=== PATIENT | female | born 1945 | race Caucasian/White ===

== ENCOUNTER 2016-03-30 10:28 | Emergency (ER) | payer MEDICARE, OTHER ==
[~2016-03-30] VITALS: Ht 165.1 cm; Wt 47.7 kg
[~2016-03-30 10:28] MED LIST: ALBU18HF INH; CITA40TA13 PO; GABA600T2 PO; HYDR2TAB27 PO; OXYC-284 PO; QUET100T PO; TIOT18CA3 IH
[2016-03-30 10:44] VITALS: BP 146/88; PULSE 100; RESP 20; O2SAT 95
[2016-03-30 11:11] LABS: BASOPHILS % (AUTO) 0.7 % (0-3); EOSINOPHILS % (AUTO) 0.9 % (0-5); MONOCYTES % (AUTO) 9.5 % (4-12); Mean Corpuscular Hemoglobin 33.3 pg (27.0-35.0); Mean Corpuscular Volume 97.1 fL (81-100); NEUTROPHILS % (AUTO) 67.8 % (40-74); Platelet Count 336 bil/L (150-400)
[2016-03-30 11:43] LABS: Magnesium 2.2 mg/dL (1.6-2.6)
[2016-03-30] MEDS ORDERED: 0.9% Sodium Chloride 1,000 ML IV ONE (12:14)
[2016-03-30] MEDS ORDERED: Ondansetron 2 mg/mL 2 mL Inj IVPUSH ONE (12:15)
--- NOTE | 2016-03-30 12:21 | ED.REPORT ---
HPI-NVD Date of Service Mar 30, 2016 ED Provider: Los Cavanaugh PA-C Tena is a 71-year-old female with history of COPD who presents with chief complaint of vomiting and diarrhea. She reports a 3 day history of nonbloody vomiting and diarrhea associated with crampy abdominal pain, headache, chills and sweats. Admit sick contacts and 7 pound weight loss since symptoms began. Denies fever, travel, hematemesis, hematochezia, melena, urinary symptoms, upper respiratory symptoms, dizziness, chest pain, palpitations, wheeze, cough, shortness of breath. Nursing Notes Stated Complaint: VOMITING Chief Complaint: General Complaint Nursing Notes Reviewed: Yes Allergies: Coded Allergies: No Known Allergies (Verified Allergy, Unknown, 11/21/14) Scheduled Citalopram (Citalopram) 40 Mg Tablet 40 MG PO DAILY Gabapentin (Gabapentin) 600 Mg Tablet 300 MG PO AM Gabapentin (Gabapentin) 600 Mg Tablet 1,200 MG PO HS Ondansetron ODT (Ondansetron ODT) 8 Mg Tab.rapdis 8 MG PO TID Quetiapine Fumarate (Seroquel) 100 Mg Tablet 200 MG PO HS Tiotropium [place] (Spiriva) 18 Mcg Cap.w.dev 18 MCG IH DAILY Scheduled PRN Albuterol Sulfate (Ventolin HFA Inhaler) 200 Puff/18 Gm Inhaler 2 PUFF INH Q4 PRN PRN For Wheezing Hydromorphone (Dilaudid) 2 Mg Tablet 2-3 MG PO Q8 PRN PRN For Headache Oxycodone HCl/Acetaminophen 5-325 (Percocet 5-325) 1 Each Tablet 0.5-1 TAB PO Q6 PRN PRN For Pain General Time Seen by MD: 11:58 Chief Complaint Vomiting Past Medical History Past Medical History Notes: PCP Dr. Apodaca Past Medical History alcoholism left wrist viral meningitis 1996 cervical cancer stomach aneurism Osteoarthritis Migraine Depression Shingles Reports: COPD Past Surgical History Reports: Appendectomy, , Hysterectomy Reports: Back/neck surgery Family History Patient is adopted Smoking History Current Every Day Smoker Social History Alcohol Use: Denies alcohol use Drug Use: Denies drug use, THC Other Social History: Lives alone, Local resident Ambulatory Status Independent Review of Systems Negative unless stated otherwise in history of present illness Physical Exam General: Well appearing, thin, no acute distress. Head: Atraumatic, normocephalic. Eyes: No scleral icterus or injection. No discharge. Vision grossly intact. ENT: Voice clear, hearing grossly intact, mucous membranes moist. Respiratory: Regular rate and rhythm. Breath sounds present, clear to auscultation and equal bilaterally. Cardiovascular: Regular rate and rhythm, without murmur, gallop or rub. No pedal edema. Gastrointestinal: Abdomen flat and non-tender without guarding or rebound. Bowel sounds normoactive. Skin: Warm and dry. Neurological: Grossly nonfocal. Psychological: Alert and oriented. Speech appropriate, linear and logical. Behavior appropriate. Initial Vital Signs Vital Signs (First) Date Time Temp Pulse Resp B/P Pulse Ox O2 Delivery O2 Flow Rate FiO2 03/30/16 10:44 36.1 100 20 146/88 95 Room Air Initial VS: Reviewed, Vital signs normal (borderline tachycardia) Interpretation & Diagnostics Interpretation & Diagnostics: Negative for flu a & B Lab Results Interpretation Result Diagram: 03/30/16 1100 03/30/16 1100 Test 03/30/16 11:00 03/30/16 13:05 03/30/16 13:10 White Blood Count 9.1th/mm3 (3.8-10.1) Red Blood Count 4.53mil/mm3 (3.90-5.20) Hemoglobin 15.1g/dL (12.0-15.6) Hematocrit 44.0% (35.0-46.0) Mean Corpuscular Volume 97.1fL (81-100) Mean Corpuscular Hemoglobin 33.3pg (27.0-35.0) Mean Corpuscular Hemoglobin Concent 34.3% (32.0-37.0) Red Cell Distribution Width 12.8% (12.3-15.4) Platelet Count 336bil/L (150-400) Neutrophils (%) (Auto) 67.8% (40-74) Lymphocytes (%) (Auto) 20.9% (14-46) Monocytes (%) (Auto) 9.5% (4-12) Eosinophils (%) (Auto) 0.9% (0-5) Basophils (%) (Auto) 0.7% (0-3) Sodium Level 141mEq/L (134-144) Potassium Level 4.4mEq/L (3.5-5.2) Chloride Level 100mEq/L (97-108) Carbon Dioxide Level 25mmol/L (18-29) Blood Urea Nitrogen 14mg/dL (8-27) Creatinine 0.68mg/dL (0.57-1.00) Estimat Glomerular Filtration Rate 121mL/min (>59) Glucose Level 115mg/dL (60-99) Calcium Level 9.9mg/dL (8.5-10.1) Magnesium Level 2.2mg/dL (1.6-2.6) Total Bilirubin 0.5mg/dL (0.0-1.2) Aspartate Amino Transf (AST/SGOT) 17U/L (0-50) Alanine Aminotransferase (ALT/SGPT) 9U/L (0-32) Alkaline Phosphatase 107U/L (25-165) Total Protein 7.7g/dL (6.4-8.4) Albumin 4.9g/dL (3.4-5.0) Hold Goodson Top Tube Received (Received) Hold Purple Top Tube Received (Received) Hold Blue Top Tube Received (Received) Hold Red Top Tube Received (Received) Hold Coin Top Tube Received (Received) Hold Urine Received (Received) Re-Eval/Medical Decision Med Decision/Clinical Course Patient's a cheerful 71-year-old female who presents with a chief complaint of 3 days of vomiting and diarrhea. She states she has been unable to keep anything down over that time. History of COPD. History and physical is generally reassuring, labs are within acceptable limits. I believe this is viral gastroenteritis versus bacterial gastroenteritis, influenza, toxidrome. Patient responded well to a liter of normal saline and Zofran in the department. She is able to eat some crackers and drink some water successfully , felt much better and wished to be discharged to home. Prescribe Zofran, counseled BRAT diet, primary care follow-up, gave return precautions Discharge & Departure Impression: Primary Impression: Viral gastroenteritis Disposition: Home Discharge Condition All VS Reviewed: Yes Condition: Stable Patient Instructions: Gastroenteritis (ED) Additional Instructions: Evaluation for nausea and vomiting in the emergency department. History, physical and blood work are all quite reassuring. I believe this is a viral gastroenteritis. You responded well to a liter of fluid and antinausea medications and emergency Department. At this point I believe you are stable and safe to be discharged to home. I will send you with a prescription for the antinausea medication. As discussed are not typically recommend antidiarrheal agents. I do recommend the BRAT diet: Bananas, rice, applesauce and toast, though you are free to eat any mild food that you tolerate. Most importantly, rest and drink small amounts of fluid throughout the day. I recommend half strength apple juice or Gatorade, though rehydration fluids such as Pedialyte are also an effective choice. Follow-up with your primary care provider if symptoms are not resolving in a few days. Return to emergency department for any new or worsening symptoms including uncontrollable vomiting or diarrhea, weakness, high fever. Referrals: Negin Apodaca MD (PCP) EDSupervising Provider for APC: Jarrett Arora DO copies to: Negin Apodaca MD, Seth PA-C Mar 30, 2016 12:21
[2016-03-30] MEDS ORDERED: ONDA8TAB10 PO (14:59)
[2016-07-30] MEDS ORDERED: BENZ200C44 PO (08:56)
[2016-07-30] MEDS ORDERED: ARFO15VI2 IH (08:59)
[2016-07-30] MEDS ORDERED: ALBU18HF INH (08:59)
[2016-07-30] MEDS ORDERED: BUDE1AMP2 IH (08:59)
== END 2016-03-30 15:11 | disposition home or self-care (01) ==
LOC: SED 10:28
DX: A08.4 Viral intestinal infection, unspecified (principal); R11.10 Vomiting, unspecified; R19.7 Diarrhea, unspecified; J44.9 Chronic obstructive pulmonary disease, unspecified; F17.200 Nicotine dependence, unspecified, uncomplicated
CPT/HCPCS: 36415; 80053; 83735; 85025; 87804; 96361; 96374; 96375; 99284; J2405; J7030

== ENCOUNTER 2016-04-23 17:24 | Emergency (ER) | payer MEDICARE, OTHER ==
[~2016-04-23] VITALS: Ht 165.1 cm; Wt 49.0 kg
[~2016-04-23 17:24] MED LIST changes: +ONDA8TAB10 PO
[2016-04-23 17:33] VITALS: BP 124/83; PULSE 108; RESP 20; O2SAT 93
--- NOTE | 2016-04-23 18:13 | DRSVH ---
PROCEDURE: X-RAY CHEST ONE VIEW, PORTABLE ([id number]) INDICATIONS: SHORTNESS OF BREATH TECHNIQUE: One view of the chest was acquired. COMPARISON: Located Within [facility], CR, XR CHEST 1VW (PORTABLE), 06/19/2015, 16:17. FINDINGS: Surgical changes and devices: None. Lungs and pleura: No pleural effusions or pneumothorax. There is hyperinflation of the lungs with f lattening of the hemidiaphragms compatible with COPD. Lungs are clear without acute consolidation. Mediastinum: Mediastinal contours appear unchanged. Heart size is normal. Bones and chest wall: No suspicious bony lesions. Overlying soft tissues appear unremarkable. IMPRESSION: 1. Findings compatible with COPD redemonstrated without acute consolidation. Dictated by: Ismael Naranjo M.D. on 04/23/2016 at 18:10 Approved by: Ismael Naranjo M.D. on 04/23/2016 at 18:11
[2016-04-23 18:52] LABS: BASOPHILS % (AUTO) 0.2 % (0-3); MONOCYTES % (AUTO) 10.5 % (4-12); Mean Corpuscular Hemoglobin 33.1 pg (27.0-35.0); Mean Corpuscular Volume 98.2 fL (81-100); NEUTROPHILS % (AUTO) 59.4 % (40-74); Platelet Count 314 bil/L (150-400)
[2016-04-23 19:06] VITALS: BP 146/80; PULSE 100; RESP 20; O2SAT 96
[2016-04-23 19:08] LABS: TROPONIN T < 0.010 ug/L (0.0-0.011)
--- NOTE | 2016-04-23 19:55 | ED.REPORT ---
HPI-Dyspnea / Wheezing Date of Service Apr 23, 2016 ED Provider: Noemi Arauz MD This is a 71 year old female with a history of COPD and abdominal aneurysm presenting to the emergency department complaining of shortness of breath that began one week ago. Pt completed a 5-day course of doxycycline and prednisone two days ago. However, symptoms continue to persist. Associated symptoms include non-productive cough, dyspnea and dizziness on exertion, rhinorrhea, and nasal congestion. Denies chest pain, fever, chills, nausea, vomiting, abdominal pain, dysuria, hematuria, or diarrhea. Nursing Notes Stated Complaint: SOB Chief Complaint: Respiratory Complaints Nursing Notes Reviewed: Yes Allergies: Coded Allergies: No Known Allergies (Verified Allergy, Unknown, 04/23/16) Scheduled Citalopram (Citalopram) 40 Mg Tablet 40 MG PO DAILY Gabapentin (Gabapentin) 600 Mg Tablet 300 MG PO AM Gabapentin (Gabapentin) 600 Mg Tablet 1,200 MG PO HS Ondansetron ODT (Ondansetron ODT) 8 Mg Tab.rapdis 8 MG PO TID Quetiapine Fumarate (Seroquel) 100 Mg Tablet 200 MG PO HS Tiotropium [place] (Spiriva) 18 Mcg Cap.w.dev 18 MCG IH DAILY Scheduled PRN Albuterol Sulfate (Ventolin HFA Inhaler) 200 Puff/18 Gm Inhaler 2 PUFF INH Q4 PRN PRN For Wheezing Hydromorphone (Dilaudid) 2 Mg Tablet 2-3 MG PO Q8 PRN PRN For Headache Oxycodone HCl/Acetaminophen 5-325 (Percocet 5-325) 1 Each Tablet 0.5-1 TAB PO Q6 PRN PRN For Pain General Time Seen by MD: 19:52 Chief Complaint Other Hx Obtained From: Patient Arrived By: Walk-in Sudden in Onset?: Yes Onset Occurred: 1 week ago Symptom Duration: Since onset Severity: Current: Mild Pertinent Negative: Pt denies other symptoms Recent Healthcare: No recent doctor visit, No recent hospitalization Similar Sx Previous: No Past Medical History Past Medical History Notes: PCP Dr. Apodaca Past Medical History alcoholism left wrist viral meningitis 1996 cervical cancer stomach aneurism Osteoarthritis Migraine Depression Shingles Reports: COPD Past Surgical History Reports: Appendectomy, , Hysterectomy Reports: Back/neck surgery Family History Patient is adopted Smoking History Current Every Day Smoker Social History Alcohol Use: Denies alcohol use Drug Use: Denies drug use, THC Other Social History: Lives alone, Local resident Ambulatory Status Independent Review of Systems Constitutional: Denies: Chills, Fever Respiratory: Reports: Dyspnea on exertion, Non-productive cough, Shortness of breath Complete sys rev & neg: except as marked. GI: Denies: Abdominal pain, Constipation, Diarrhea, Nausea, Vomiting Female: Denies: Dysuria Neurologic: Reports: Dizziness, Denies: Headache Physical Exam Initial Vital Signs Vital Signs (First) Date Time Temp Pulse Resp B/P Pulse Ox O2 Delivery O2 Flow Rate FiO2 04/23/16 17:33 36.0 108 20 124/83 93 Room Air Initial VS: Reviewed Head / Eyes: Atraumatic, Normocephalic, PERRL Abdomen / GI: Soft, Non-tender, No guarding, No rebound, No distention Extremities: Vascular intact, Neuro intact, No swelling, No tenderness Skin: Warm, Dry, No cyanosis Neurologic: Alert, Oriented, Nonfocal Psychiatric: Mood/affect normal, Behavior normal, Normal thought content General/Constitutional: Awake, Alert Neck: Atraumatic, Supple, No meningismus, Full range of motion, No swelling, Non-tender, No masses Wheezing / Retractions: Positive: Prolonged exp phase, Wheezing expiratory Rales / Rhonchi: Positive: Rhonchi diffuse Coarse breath sounds diffusely Cardiovascular: Heart rate NL, Regular rhythm, Heart sounds NL, Peripheral circulation NL ENT: Tympanic membs NL Mouth: Positive: Mucous membranes dry Interpretation & Diagnostics CHEST X-RAY IMPRESSION: 1. Findings compatible with COPD redemonstrated without acute consolidation. Dictated by: Ismael Naranoj M.D. on 04/23/2016 at 18:10 Approved by: Ismael Naranjo M.D. on 04/23/2016 at 18:11 Lab Results Interpretation Result Diagram: 04/23/16 1830 04/23/16 1830 Test 04/23/16 18:30 04/23/16 21:40 White Blood Count 12.8th/mm3 (3.8-10.1) Red Blood Count 4.38mil/mm3 (3.90-5.20) Hemoglobin 14.5g/dL (12.0-15.6) Hematocrit 43.0% (35.0-46.0) Mean Corpuscular Volume 98.2fL (81-100) Mean Corpuscular Hemoglobin 33.1pg (27.0-35.0) Mean Corpuscular Hemoglobin Concent 33.7% (32.0-37.0) Red Cell Distribution Width 12.9% (12.3-15.4) Platelet Count 314bil/L (150-400) Neutrophils (%) (Auto) 59.4% (40-74) Lymphocytes (%) (Auto) 26.4% (14-46) Monocytes (%) (Auto) 10.5% (4-12) Eosinophils (%) (Auto) 3.0% (0-5) Basophils (%) (Auto) 0.2% (0-3) Sodium Level 137mEq/L (134-144) Potassium Level 4.5mEq/L (3.5-5.2) Chloride Level 94mEq/L (97-108) Carbon Dioxide Level 28mmol/L (18-29) Blood Urea Nitrogen 21mg/dL (8-27) Creatinine 0.74mg/dL (0.57-1.00) Estimat Glomerular Filtration Rate 110mL/min (>59) Glucose Level 107mg/dL (60-99) Calcium Level 9.5mg/dL (8.5-10.1) Total Bilirubin 0.2mg/dL (0.0-1.2) Aspartate Amino Transf (AST/SGOT) 27U/L (0-50) Alanine Aminotransferase (ALT/SGPT) 31U/L (0-32) Alkaline Phosphatase 97U/L (25-165) Troponin T < 0.010ug/L (0.0-0.011) Pro-B-Type Natriuretic Peptide 57.27pg/mL (0-301) Total Protein 7.0g/dL (6.4-8.4) Albumin 4.2g/dL (3.4-5.0) Hold Goodson Top Tube Received (Received) ECG Interpretation ECG Interpretation: SR at rate of 95 Abnormal T No STEMI Time: 20:06 Interpreted by: ED physician Re-Eval/Medical Decision Med Decision/Clinical Course 71-year-old female with past medical history of COPD and AAA here with worsening shortness of breath. Patient was treated approximately one week ago with doxycycline and steroids for COPD exacerbation. Differential diagnosis includes but is not limited to viral upper respiratory infection versus bacterial upper respiratory infection versus pneumonia versus COPD exacerbation. X-ray is unremarkable. She drastically improved after 1 DuoNeb. She was walked in the emergency department and experienced no desaturation and her oxygen saturation. Orthostatics were also performed, and she did not have any orthostasis. She is amenable to discharge at this time with follow-up with her primary care physician. She has been given strict return precautions, and I have advised her to use her home nebulizer every 3 hours for the next 48 hours, and then to start spacing it out as tolerated. She is amenable to discharge. Her labs are unremarkable aside from mild leukocytosis, likely secondary to steroid burst. Re-Evaluation/Progress : Time of Eval: 21:33 Re-Evaluation/Progress Note: Condition imoroved. plan for d/c, all questions addressed. Counseled Regarding: Diagnosis, Lab results, Need for follow-up Discharge & Departure Impression: Primary Impression: COPD exacerbation Disposition: Home Discharge Condition All VS Reviewed: Yes Condition: Stable Patient Instructions: Chronic Obstructive Pulmonary Disease (ED) Additional Instructions: Thank you for seeking care at the emergency department today. Use your nebulizer every 3 hours for the next 48 hours. Follow-up with your primary care provider. Return to the emergency department for any new or worsening symptoms Referrals: Negin Apodaca MD (PCP) Scribe Attestation Portions of this note were transcribed by Tatum Bean. I, Dr. Arauz personally performed the history, physical exam and medical decision-making; I reviewed and confirmed the accuracy of the information in the transcribed note. Signed by: nicholas Connor. 04/23/2016, 23:00. Noemi Arauz MD Apr 23, 2016 19:55 TATUM BEAN Apr 23, 2016 20:05
[2016-04-23] MEDS ORDERED: Albuterol-Ipratropium 3 mL Inhalation Solution NEB ONE (20:05)
[2016-04-23 20:26] VITALS: BP_SYST 137; BP_SYST 140; BP_DIAS 67; BP_DIAS 75; PULSE 104
[2016-04-23 20:41] VITALS: PULSE 97; RESP 20; O2SAT 94
[2016-04-23 21:55] VITALS: BP 132/74; PULSE 91; RESP 21; O2SAT 94
[2016-04-23 22:15] LABS: APPEARANCE,URINE CLEAR (CLEAR,HAZY); COLOR,URINE YELLOW (YELLOW); OCCULT BLOOD,URINE NEGATIVE (NEGATIVE); UROBILINOGEN,URINE NORMAL (NORMAL)
[2016-07-30] MEDS ORDERED: BENZ200C44 PO (08:56)
[2016-07-30] MEDS ORDERED: ARFO15VI2 IH (08:59)
[2016-07-30] MEDS ORDERED: ALBU18HF INH (08:59)
[2016-07-30] MEDS ORDERED: BUDE1AMP2 IH (08:59)
== END 2016-04-23 21:55 | disposition home or self-care (01) ==
LOC: SED 17:24
DX: J44.1 Chronic obstructive pulmonary disease with (acute) exacerbation (principal); R42 Dizziness and giddiness; F17.200 Nicotine dependence, unspecified, uncomplicated; Z85.41 Personal history of malignant neoplasm of cervix uteri
CPT/HCPCS: 36415; 71010; 80053; 81000; 83880; 84484; 85025; 93005; 94664; 99285; J7620

== ENCOUNTER 2016-07-31 05:48 | Day surgery (SDC) | payer MEDICARE, OTHER ==
[~2016-07-31] VITALS: Ht 165.1 cm; Wt 47.7 kg
[~2016-07-31 05:48] MED LIST changes: +ARFO15VI2 IH; +BENZ200C44 PO; +BUDE1AMP2 IH
[2016-07-31] MEDS: Lactated Ringer's 1,000 ML IV SCH ×2 (06:11→07:26)
[2016-07-31 06:12] VITALS: BP 126/76; PULSE 94; RESP 20; O2SAT 93
[2016-07-31] MEDS ORDERED: HYDROcodone-APAP 7.5-325 mg Tablet PO PRN (06:50)
[2016-07-31] MEDS ORDERED: BUPR100T8 PO (06:54)
[2016-07-31] MEDS ORDERED: Dexamethasone 4 mg/mL Inj IVPUSH PRN (06:55)
[2016-07-31] MEDS ORDERED: Labetalol 5 mg/mL 4 mL Inj IV PRN (06:55)
[2016-07-31] MEDS ORDERED: fentaNYL-PF 50 mCg/mL 2 mL Inj IVPUSH PRN (06:55)
[2016-07-31] MEDS ORDERED: Phenylephrine 10,000 mCg/mL Inj IVPUSH PRN (06:55)
[2016-07-31] MEDS ORDERED: MetoCLOpramide 5 mg/mL 2 mL Inj IVPUSH PRN (06:55)
[2016-07-31] MEDS ORDERED: HYDROmorphone 1 mg/mL Inj IVPUSH PRN (06:55)
[2016-07-31] MEDS ORDERED: Lactated Ringer's 500 ML IV PRN (06:55)
[2016-07-31] MEDS ORDERED: EPHEDrine Sulfate 50 mg/mL Inj IVPUSH PRN (06:55)
[2016-07-31] MEDS ORDERED: Ondansetron 2 mg/mL 2 mL Inj IVPUSH PRN (06:55)
[2016-07-31] MEDS ORDERED: hydrALAZINE 20 mg/mL Inj IVPUSH PRN (06:55)
[2016-07-31] MEDS ORDERED: Lactated Ringer's 1,000 ML IV SCH (06:55)
[2016-07-31] MEDS ORDERED: Albuterol-Ipratropium 3 mL Inhalation Solution ONE (07:00)
--- NOTE | 2016-07-31 08:20 | PCM.HPANE ---
Patient Data Date of Service: July 31, 2016 Surgeon Admitting Provider: Attending Provider:Justin Ma DO Primary Care Physician:Negin Apodaca MD Other Provider:Evangelina Soto Anesthesia Reason for Visit Right 4TH Metacarpal Neck And Head Fracture Ht/WT & BMI Height (Feet): 5 Height (Inches): 5 Weight (Kilograms): 47.7 Body Mass Index 17.00 Allergies Coded Allergies: hydroxyzine (Verified Adverse Reaction, Mild, nausea, 07/30/16) Past Anesthesia History Anesthesia History: Denies:: Abnormal Airway, Anesthesia Reactions, Difficult Intubation, Fam Anesthesia Reaction, Fam Malignant Hypertherm, Malignant Hyperthermia Diabetes History Hx Diabetes?: No Medications Home Meds Incl Beta Cristina: No Reported Medications Bupropion ER 100 Mg Tablet.er100 Tab PO DAILY #30 07/31/16 Albuterol Sulfate (Ventolin HFA Inhaler)200 Puff/18 Gm Inhaler1 Puff INH Q4 PRN For Wheezing #1 INHALER Ref 0 07/30/16 Budesonide 1 Mg/2 Ml Ampul.neb1 Mg IH TID 07/30/16 Arformoterol Tartrate (Brovana)15 Mcg/2 Ml Vial.neb15 Mcg IH BID PRN For Shortness of Breath 07/30/16 Quetiapine Fumarate (Seroquel)100 Mg [id number] Mg PO HS #30 TABLET Ref 0 01/14/14 Gabapentin 600 Mg Tablet1,200 Mg PO HS 30 Days Ref 0 01/14/14 Gabapentin 600 Mg [id number] Mg PO AM 30 Days Ref 0 01/14/14 Citalopram 40 Mg [id number] Mg PO DAILY 30 Days Ref 0 01/14/14 Discontinued Reported Medications Benzonatate 200 Mg [id number] Mg PO TID 07/30/16 Tiotropium [place] (Spiriva)18 Mcg Cap.w.dev18 Mcg IH DAILY #1 PKG Ref 0 08/19/14 Albuterol Sulfate (Ventolin HFA Inhaler)200 Puff/18 Gm Inhaler2 Puff INH Q4 PRN For Wheezing #1 INHALER Ref 0 08/19/14 Oxycodone HCl/Acetaminophen 5-325 (Percocet 5-325)1 Each Tablet0.5-1 Tab PO Q6 PRN For Pain Ref 0 08/19/14 Hydromorphone (Dilaudid)2 Mg Tablet2-3 Mg PO Q8 PRN For Headache 01/14/14 History History of ENT Problems?: No HEENT History: Denies:: Abnormal Airway Cataracts Difficult Intubation Dysphagia Glaucoma Hearing Problem Sinus Problem TMJ Denture Type: Full- Upper Full- Lower Teeth Condition: No Teeth Hx of Heart Problems?: Yes Cardiovascular History: Positive for:: Abdominal Aortic Aneurism (3.7CM) Coronary Artery Disease (ELEVATED CHLORESTEROL) Denies:: Congestive Heart Failure Edema Heart Murmur Hypertension Other Cardiac History: PT HAS A 3.7CM ABDOMIN AORTIC ANEURYSM Hx of Respiratory Problem?: Yes Respiratory History: Positive for:: COPD Dyspnea Emphysema Pneumonia Denies:: Asthma Chest Surgery Hemoptysis Tuberculosis Hx Neurologic Problems?: Yes Neurological History: Positive for:: Headaches (Migraines) Other Neurological Pertinent: INSOMNIA Hx of GI Problems?: Yes Gastrointestinal History: Denies:: Cirrhosis Diverticulitis Gall Bladder Disease Gastroesphageal Reflux Gastrointestinal Bleeding Heartburn Hepatitis Hiatal Hernia Liver Disease Rectal Bleeding Other GI Pertinent History: GASTROENTERITIS, DYSPHAGIA Hx of Problems?: No Female Hx: Denies:: Currently Endometriosis Pelvic Inflammatory Problems with Breasts? Skin History: Denies:: History Skin Disorders? Pressure Ulcers Hx Musculoskeletal Problems?: Yes Musculoskeletal History: Positive for:: Musculoskeletal Trauma (L FINGER FX, L KNEE PAIN, R FINGER FX, ANKEL FX) Hx of Psycho/Social Problems?: Yes Psycho Social History: Positive for:: Anxiety Hx Depression Suicide Attempt Denies:: Bipolar Disorder Hx Surgeries?: No (ORTHO, HYSTERECTOMY) Other History: Positive for:: Cancer (UTERINE) Hospitalization History Blood Transfusions: Positive for:: Blood Transfusions Denies:: Blood Transfuse Reaction Hx Diabetes: No Hx Alcohol Use: No (QUIT IN 2012)Hx Substance Use: No Smoking Status: Light Tobacco Smoker Have You Smoked inLast 12 mo: Yes Stop/Bang Treated for Sleep Apnea?: No Do You Have a CPAP Machine?: No S-Snoring: Do You Snore Loudly: No T-Tired: feel tired, fatigued: No O-Obsered: Observed not breath: No P-Blood Pressure: treated: No B- Body Mass Index > 35 kg/m2: No A- Age over 50: Yes N- Neck Large Circumference: No G- Gender Male: No SONAM Risk Assessment: Low Risk, <3 Yes Risk Assessment Category Category 1A: Patient has history of documented sleep apnea, and HAS NOT received any narcotic, sedative or anesthesia administration during this stay. Category 1B: Patient has history of documented sleep apnea, and HAS received any narcotic , sedative or anesthesia administration during this stay Category 2: Patient has SUSPECTED Obstructive Sleep Apnea, and HAS received any narcotic , sedative or anesthesia administration during this stay. Category 3: Patient has SUSPECTED Obstructive Sleep Apnea and HAS NOT received narcotic, sedative or anesthesia administration during this stay. Category 4: Outpatient in Procedural Areas with known sleep apnea or who screen positive for High Risk via the STOP/BANG questionnaire. Exam Exam Vital Signs Vital Signs Date Time Temp Pulse Resp B/P Pulse Ox O2 Delivery O2 Flow Rate FiO2 07/31/16 06:12 36.5 94 20 126/76 93 Room Air General Appearance: Alert, Oriented X3, Cooperative, No Acute Distress HEENT/AIRWAY: MP 2, Other (full dentures) Lungs: Clear to Auscultation, Diminished Heart: Exam Unremarkable, Regular Rate/Rhythm, No Murmurs/Rubs/Gallops Meds/Labs/Diagnostics Admission Meds Current Medications Lactated Ringer's (Lr) 1,000 ml @ 120 mls/hr Q8H20M IV Last administered on 07:26; Start 07/31/16 at 05:00; Stop 07/31/16 at 13:19 Albuterol/ Ipratropium (DuoNEB Inh Soln) 3 ml STK-MED ONCE .ROUTE Last administered on 07/31/16 07:03; Start 07/31/16 at 07:00; Stop 07/31/16 at 07:03 ; Status DC Cefazolin Sodium (Ancef Inj) 1 gm STK-MED ONCE IVPUSH Last administered on 07/31 07:38; Start 07/31/16 at 07:38; Stop 07/31/16 at 08:01; Status DC Plan Impression Patient chart reviewed, patient interviewed and anesthestic plan with risks, benefits, and alternatives discussed, and informed consent obtained. NPO per Anesth. Guidelines: Yes ASA Physical Status: ASA3 Severe Disease Anesthetic Plan: Regional Block Bene/Risks/Altern/Consents: Yes HP Complete Prior to Induction: Yes Other Plan Abhay block because of Severe COPD. Donald Garza MD July 31, 2016 08:20
[2016-07-31 09:14] VITALS: BP 136/61; PULSE 92; RESP 18; O2SAT 99
[2016-07-31 09:15] VITALS: BP 129/62; PULSE 92; RESP 22; O2SAT 92
[2016-07-31] MEDS ORDERED: Lidocaine 1%-Epi 1:100,000 20 mL Inj INFILTRATE ONE (09:15)
[2016-07-31 09:21] VITALS: BP 113/58; PULSE 92; RESP 20; O2SAT 94
[2016-07-31 09:27] VITALS: BP 128/60; PULSE 88; RESP 20; O2SAT 95
--- NOTE | 2016-07-31 09:43 | PCM.ANEP1 ---
Post Anesthesia PACU Phase 1 Assessment Date of Service: July 31, 2016 Vital Signs Vital Signs Date Time Temp Pulse Resp B/P Pulse Ox O2 Delivery O2 Flow Rate FiO2 07/31/16 09:27 88 20 128/60 95 Nasal Cannula 2 07/31/16 09:21 92 20 113/58 94 Nasal Cannula 2 07/31/16 09:15 92 22 129/62 92 Room Air 07/31/16 09:14 37 92 18 136/61 99 Room Air 07/31/16 06:12 36.5 94 20 126/76 93 Room Air Anesthetic Administered: Regional Block Level of Alertness: Awake, talking Pain: No Nausea or Vomiting: No CV Function and Hydration: Yes Airway Device: Oxygen Delivery: Room Air Lungs: Clear to Auscultation, Diminished PACU Phase 2 Assessment Patient Instructions Provided: Yes Donald Garza MD July 31, 2016 09:43
--- NOTE | 2016-07-31 09:52 | OP ---
[address] [address] OPERATIVE REPORT PATIENT: NIC STEVE : 1945 MR#: [id number] ADMIT: 07/31/2016 JOB ID: [id number] CORRECTED REPORT: DATE OF SURGERY: 07/31/2016 PREOPERATIVE DIAGNOSIS(ES): Right fourth metacarpal neck fracture. POSTOPERATIVE DIAGNOSIS(ES): Right fourth metacarpal neck fracture. PROCEDURE: Open reduction internal fixation, right fourth metacarpal neck fracture. SURGEON: Justin Ma D.O. ANESTHESIA: [place] block. HISTORY: The patient is a 71-year-old female that fell sustaining a right 4th metacarpal neck fracture with extension just below the metacarpal head. She had minimal displacement and was treated in a cast. She returned a week from her injury with further displacement of the fracture. I discussed with the patient the risks, benefits, alternatives and indications to proceed with open reduction internal fixation of right fourth metacarpal neck fracture. She understood the risks include, but not limited to, neurovascular injury, tendon injury, infection, failure of fixation, stiffness, persistent pain, all of which may require further intervention. The patient had all her questions answered. Consent was signed and placed in the chart. PROCEDURE IN DETAIL: The patient was brought to the operative suite and placed supine on the table. Surgical time-out was performed. Everyone in the room was in agreement. After appropriate anesthesia was obtained, the right upper extremity was then prepped and draped in a sterile fashion. A longitudinal incision was made directly overlying the 4th metacarpal neck. Dissection was carried down to the extensor tendon. The juncture was released from EDC tendon between the middle and the ring finger and the extensor tendons overlying the 4th metacarpal were retracted ulnarly. The periosteum was then incised and the periosteum elevated. The fracture site was exposed along the radial aspect of the neck. Manual reduction was performed with longitudinal traction and application of pointed forceps. The reduction was verified under fluoroscopy. Next, a Synthes 2.0 mm condylar plate was applied along the radial aspect of the metacarpal as a buttress plate. This was a five hole plate. The nonlocking screw was first applied to an oblong hole within the shaft to pull the plate to the radial cortex of the metacarpal. This allowed for significant buttress. This was followed by application of a nonlocking screw within the distal screw, across the fracture site as a lag screw. Completion of fixation was performed utilizing combination of nonlocking screws proximally and nonlocking and a locking screw distally within the head. While drilling for the locking screw, the drill tip did break and a small portion of the tip was within the medullary canal of the head. Final radiographic projections on fluoroscopy utilized to verify anatomic reduction and appropriate placement of the hardware. Copious irrigation was then performed, followed by closure of the overlying fascia with 4-0 Vicryl and a running 4-0 nylon for the skin. The patient was then placed in a well-padded well-molded ulnar gutter splint. ESTIMATED BLOOD LOSS: Less than 1 cc. COMPLICATIONS: The drill tip broke within the metacarpal head. It was situated within the confines of the head and thus decision was made not to attempt to remove the tip of the drill as this would cause more substantial damage. IMPLANTS: Synthes 2.0 mm five hole condylar plate with a combination of nonlocking and locking screws. POSTOPERATIVE PLAN: The patient will follow up with occupational therapy this week to be transitioned into a ulnar gutter brace. She is to start working on range of motion of the hand immediately after she sees therapy. I will see her back in the office in two weeks. We will repeat x-rays at that time and re-evaluate her motion. Corrected by CASSIE 08/01/16 at 10:20am Account number.
[2016-07-31 09:59] VITALS: BP 125/69; PULSE 95; RESP 18; O2SAT 96
== END 2016-07-31 23:59 | disposition home or self-care (01) ==
LOC: SAS 05:48
PROVIDERS: ATTEND Orthopaedic Surgery
DX: S62.334A Displaced fracture of neck of fourth metacarpal bone, right hand, initial encounter for closed fracture (principal); I25.10 Atherosclerotic heart disease of native coronary artery without angina pectoris; E78.5 Hyperlipidemia, unspecified; I71.4 Abdominal aortic aneurysm, without rupture; J44.9 Chronic obstructive pulmonary disease, unspecified; F41.8 Other specified anxiety disorders; K21.9 Gastro-esophageal reflux disease without esophagitis; M85.80 Other specified disorders of bone density and structure, unspecified site; F17.210 Nicotine dependence, cigarettes, uncomplicated; Z90.710 Acquired absence of both cervix and uterus; Z85.42 Personal history of malignant neoplasm of other parts of uterus; W01.0XXA Fall on same level from slipping, tripping and stumbling without subsequent striking against object, initial encounter; Y93.9 Activity, unspecified; Y92.9 Unspecified place or not applicable; Y99.8 Other external cause status
CPT/HCPCS: 26615; C1713; J0690; J7120; J7620

== ENCOUNTER 2016-08-08 19:37 | Emergency (ER) | payer MEDICARE, OTHER ==
[~2016-08-08] VITALS: Ht 165.1 cm; Wt 44.5 kg
[~2016-08-08 19:37] MED LIST changes: -BENZ200C44 PO; +BUPR100T8 PO; -HYDR2TAB27 PO; -ONDA8TAB10 PO; -OXYC-284 PO; -TIOT18CA3 IH
[2016-08-08 19:40] VITALS: BP 130/78; PULSE 86; RESP 16; O2SAT 96
--- NOTE | 2016-08-08 20:58 | DRSVH ---
PROCEDURE: CT ANGIO CHEST PULMONARY EMBOLISM ([id number]) INDICATIONS: SOB TECHNIQUE: After the administration of intravenous contrast, 2 mm thick sections acquired from the pulmonary api valeri to the posterior costophrenic angles. 3-dimensional maximum intensity projection (MIP) coronal a nd sagittal reformats were then acquired through the thorax. For radiation dose reduction, the follo wing was used: automated exposure control, adjustment of mA and/or kV according to patient size. COMPARISON: [facility], CT, CHEST ANGIO-PE, 01/14/2014, 17:32. FINDINGS: Image quality: Good Pulmonary arteries: Pulmonary arteries are normal in size, and demonstrate no intraluminal filling d efects to suggest central pulmonary embolism. Lungs and pleura: Emphysematous changes moderate to prominent amount. There is scarring at the left a pex. There is a new density approximately 1.2 cm in size in the posterior . somewhat inferior aspect of the right upper lobe. Developing mass cannot be excluded and followup of this in 3 months is sugge sted without contrast. No pleural effusions or pneumothorax. Central and peripheral airways are serna nt. Mediastinum: Heart size is normal, without pericardial effusion. No mediastinal or hilar adenopathy . Thoracic aorta is atherosclerotic ectatic and its lower portion aneurysmal up to 4 cm. Esophagus i s normal in caliber, without hiatal hernia. Bones and chest wall: There is a compression of what is thought to be the T11 thoracic vertebrae arielle hdate is uncertain. There is loss of approximately 50% of anterior vertebral body height. Ribs and th oracic spine appear intact throughout. . No axillary or supraclavicular adenopathy. Abdomen: Visualized upper abdominal solid organs appear normal in the early arterial phase of enhanc ement. IMPRESSION: 1. No evidence for pulmonary embolus. 2. Since the previous CT PE study a density approximately 12 mm in size is developed in the posterior aspect of the right upper lobe. The appearance of the bilaterally suspicious for mass lesion with th e differential that of small inflammatory focus. Followup of this CT scan without contrast in 3 month s is suggested. 3. Compression fracture of what is thought to be the T11 vertebrae, age is indeterminate. 4. Ectatic thoracic aorta with aneurysmal change distally near the abdominal thoracic junction. Aorta measures up to 4 cm in diameter. Dictated by: Stuart Bundy M.D. on 08/08/2016 at 20:43 Approved by: Stuart Bundy M.D. on 08/08/2016 at 20:57
--- NOTE | 2016-08-08 21:07 | ED.REPORT ---
HPI-General Illness Date of Service August 08, 2016 ED Provider: Joan Lu MD Pt is a 71 y/o female w/ a hx of COPD, everyday smoking, presenting to the ED from Urgent Care c/o SOB onset about 3 days ago. The patient recently had a right wrist surgery and has been short of breath more than her normal COPD since then. She is not currently on steroids for her COPD and uses her nebulizer 2x per day. She began feeling ill 2 days ago with symptoms such as abdominal pain and diarrhea which have resolved. She has been losing weight recently unintentionally and is a smoker. Pt denies cough, fever, chest pain. Right arm surgery performed by Dr. Ma. Nursing Notes Stated Complaint: SOB,SENT FROM Chief Complaint: Respiratory Distress Nursing Notes Reviewed: Yes Allergies: Coded Allergies: hydroxyzine (Verified Adverse Reaction, Mild, nausea, 07/30/16) Scheduled Budesonide (Budesonide) 1 Mg/2 Ml Ampul.neb 1 MG IH TID Bupropion ER (Bupropion ER) 100 Mg Tablet.er 100 TAB PO DAILY Citalopram (Citalopram) 40 Mg Tablet 40 MG PO DAILY Gabapentin (Gabapentin) 600 Mg Tablet 300 MG PO AM Gabapentin (Gabapentin) 600 Mg Tablet 1,200 MG PO HS Prednisone (PredniSONE) 20 Mg Tablet 20 MG PO DAILY Quetiapine Fumarate (Seroquel) 100 Mg Tablet 200 MG PO HS Scheduled PRN Albuterol Sulfate (Ventolin HFA Inhaler) 200 Puff/18 Gm Inhaler 1 PUFF INH Q4 PRN PRN For Wheezing Arformoterol Tartrate (Brovana) 15 Mcg/2 Ml Vial.neb 15 MCG IH BID PRN PRN For Shortness of Breath General Time Seen by MD: 21:05 Chief Complaint Other (SOB) Hx Obtained From: Patient Arrived By: Walk-in Onset Occurred: 3 days ago Symptom Duration: Since onset Severity: Current: No pain currently Severity: Maximum: No pain Past Medical History Past Medical History Notes: PCP Dr. Apodaca Past Medical History COPD alcoholism left wrist viral meningitis 1996 cervical cancer stomach aneurism Osteoarthritis Migraine Depression Shingles Past Surgical History Reports: Appendectomy, , Hysterectomy Reports: Back/neck surgery Family History Patient is adopted Smoking History Current Every Day Smoker Social History Alcohol Use: Denies alcohol use Drug Use: Denies drug use, THC Other Social History: Lives alone, Local resident Ambulatory Status Independent Review of Systems Full Review of Systems Constitutional: Denies: Chills, Fever Respiratory: Reports: Dyspnea on exertion, Shortness of breath, Denies: Non-productive cough Cardiovascular: Denies: Chest pain, Dyspnea on exertion GI: Denies: Abdominal pain, Diarrhea, Nausea, Vomiting Complete sys rev & neg: except as marked. Physical Exam Vital Signs Vital Signs Date Time Temp Pulse Resp B/P Pulse Ox O2 Delivery O2 Flow Rate FiO2 08/08/16 22:40 36.8 84 22 118/64 96 Room Air 08/08/16 19:40 35.9 86 16 130/78 96 Room Air Initial VS: Reviewed, Vital signs normal Head / Eyes: Atraumatic, Normocephalic, PERRL ENT: Mucous membranes moist, Conjunctiva normal, No scleral icterus Neck: Supple, Full range of motion Cardiovascular: Regular rate & rhythm, Heart sounds normal, Intact distal pulses Abdomen / GI: Soft, Non-tender Skin: Warm, Dry, No cyanosis Neurologic: Alert, Oriented, Nonfocal Psychiatric: Mood/affect normal, Behavior normal, Normal thought content General/Constitutional: Awake, Alert, No acute distress, Well appearing, Cooperative, Not toxic appearing Respiratory / Chest: Atraumatic, No respiratory distress, No retractions, No stridor Scattered mild wheezes throughout O2 saturation normal on room air Upper Extremities Upper Extremity / MS: Neurologic intact, Vascular intact Right wrist in splint Interpretation & Diagnostics CT Chest Interpretation IMPRESSION: 1. No evidence for pulmonary embolus. 2. Since the previous CT PE study a density approximately 12 mm in size is developed in the posterior aspect of the right upper lobe. The appearance of the bilaterally suspicious for mass lesion with the differential that of small inflammatory focus. Followup of this CT scan without contrast in 3 months is suggested. 3. Compression fracture of what is thought to be the T11 vertebrae, age is indeterminate. 4. Ectatic thoracic aorta with aneurysmal change distally near the abdominal thoracic junction. Aorta measures up to 4 cm in diameter. Dictated by: Stuart Bundy M.D. on 08/08/2016 at 20:43 Approved by: Stuart Bundy M.D. on 08/08/2016 at 20:57 Study type: CT pulm angiogram Interpretation / Wet Read by: Interpret - Radiologist Re-Eval/Medical Decision Time of Eval: 21:26 Re-Evaluation/Progress Note: Pt rechecked. Informed pt of plan for treatment. Pt understands and agrees with plan for treatment. F/U instructions and RTER warnings given. All questions addressed. Counseled Regarding: Diagnosis, Lab results, Need for follow-up, When/why to return to ED Discharge & Departure Primary Impression: COPD exacerbation Additional Impression: Pulmonary nodule Ruled Out: Pulmonary embolism Disposition: Home Discharge Condition All VS Reviewed: Yes Condition: Stable Patient Instructions: COPD (Chronic Obstructive Pulmonary Disease) (ED) Additional Instructions: You do not have a pulmonary embolism. There is a small abnormality in the top of your lung and the radiologist recommends a follow-up on this in 3 months. You do appear to be having an acute COPD exacerbation. You were given prednisone in the emergency department and I will recommend 20 mg daily for the next 5 days. Your prescription has been sent electronically to the [facility] pharmacy. Close follow-up with Dr. Apodaca is recommended. Referrals: Negin Apodaca MD (PCP) Justin Ma Attestation Portions of this note were transcribed by Randy Bettecnourt. I, Dr. Lu personally performed the history, physical exam and medical decision-making; I reviewed and confirmed the accuracy of the information in the transcribed note. Signed by Tash Faith, 08/08/16 7 copies to: Negin Apodaca MD, Shawna L MD August 08, 2016 21:06 RANDY BETTENCOURT August 08, 2016 21:08
[2016-08-08] MEDS ORDERED: PRE20 PO (21:29)
[2016-08-08] MEDS ORDERED: predniSONE 20 mg Tablet PO ONE (21:40)
[2016-08-08] MEDS ORDERED: Ondansetron 8 mg ODT Tablet PO ONE (21:55)
[2016-08-08 22:40] VITALS: BP 118/64; PULSE 84; RESP 22; O2SAT 96
== END 2016-08-08 22:03 | disposition home or self-care (01) ==
LOC: SED 19:37
DX: J44.1 Chronic obstructive pulmonary disease with (acute) exacerbation (principal); R91.1 Solitary pulmonary nodule; F32.9 Major depressive disorder, single episode, unspecified; G43.909 Migraine, unspecified, not intractable, without status migrainosus; F17.200 Nicotine dependence, unspecified, uncomplicated; Z88.8 Allergy status to other drugs, medicaments and biological substances; R19.7 Diarrhea, unspecified; M62.81 Muscle weakness (generalized); R53.1 Weakness
CPT/HCPCS: 71275; 93005; 96360; 99284; G0463; J7030; Q9967